=== PATIENT | female | born 1940 | race Caucasian/White ===

== ENCOUNTER 2019-04-14 13:50 | Emergency (ER) | payer MEDICARE, MEDICAID ==
[~2019-04-14] VITALS: Ht 157.5 cm; Wt 69.9 kg
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
--- NOTE | 2019-04-14 14:25 | NUR ---
[employer] at bedside for lab collection
[2019-04-14] MEDS ORDERED: IV NS 0.9% 500 ML BAG IV ONE (14:30)
[2019-04-14 14:44] LABS: BASOPHILS % (AUTO) 0.5 % (0.0-2.0); EOSINOPHILS % (AUTO) 1.5 % (0.0-6.0); HEMATOCRIT 39 % (33-45); HEMOGLOBIN 13.1 g/dL (11.5-14.8); LYMPHOCYTES # (AUTO) 0.9 /CMM (0.8-4.8); MEAN CORPUSCULAR HGB CONC 34 g/dl (31.0-36.0); MEAN CORPUSCULAR VOLUME 86 fL (82-100); MONOCYTES # (AUTO) 0.3 /CMM (0.1-1.30); MONOCYTES % (AUTO) 9.8 % (2.0-12.0); NEUTROPHILS # (AUTO) 2.2 /CMM (1.8-8.9); NEUTROPHILS % (AUTO) 61.2 % (43.0-81.0); PLATELET COUNT (AUTO) 135 /CMM (150-450); RED BLOOD CELL COUNT(AUTO) 4.58 MIL/uL (4.0-5.2); WHITE BLOOD COUNT (AUTO) 3.5 K/uL (4.3-11.0)
[2019-04-14 14:53] LABS: CALCIUM, SERUM 8.9 mg/dL (8.5-10.1); CREATININE 0.8 mg/dL (0.6-1.3)
--- NOTE | 2019-04-14 14:54 | NUR ---
xray at bedside
[2019-04-14 14:59] LABS: ALBUMIN 3.6 g/dL (3.4-5.0); BILIRUBIN,DIRECT 0.1 mg/dL (0.0-0.2); BILIRUBIN,TOTAL 0.6 mg/dL (0.2-1.0); TOTAL PROTEIN, SERUM 6.6 g/dL (6.4-8.2)
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
--- NOTE | 2019-04-14 15:18 | NUR ---
PT TAKEN TO CT
--- NOTE | 2019-04-14 15:19 | NUR ---
PT MAYKEL TO CT
--- NOTE | 2019-04-14 15:28 | NUR ---
PT CHRISTIE BACK FROM CT
--- NOTE | 2019-04-14 15:32 | NUR ---
Patient is resting comfortably in bed. Easily aroused. VSS. Family at bedside
--- NOTE | 2019-04-14 16:09 | NUR ---
EMT WALKED THE PATIENT. PT WALKED WITH STEADY GAIT.
--- NOTE | 2019-04-14 16:18 | NUR ---
Patient discharged to home in stable condition. Written and verbal after care instructions given. Patient verbalizes understanding of instruction and RX. IV removed. Catheter intact and site benign. Pressure and 4x4 applied to site. No bleeding noted.VSS. pt ambulatory with a steady gait.
[2019-04-14 16:20] VITALS: BP 148/82
== END 2019-04-14 16:23 | disposition home or self-care (01) ==
LOC: ER 13:54
DX: S22.32XA Fracture of one rib, left side, initial encounter for closed fracture (principal); S00.81XA Abrasion of other part of head, initial encounter; S60.511A Abrasion of right hand, initial encounter; S80.212A Abrasion, left knee, initial encounter; I10 Essential (primary) hypertension; E07.9 Disorder of thyroid, unspecified; Z86.19 Personal history of other infectious and parasitic diseases; W10.8XXA Fall (on) (from) other stairs and steps, initial encounter; Y93.89 Activity, other specified; Y92.89 Other specified places as the place of occurrence of the external cause; Y99.8 Other external cause status
CPT/HCPCS: 36415; 70450; 71100; 72125; 73502; 80048; 80076; 85025; 85730; 86850; 99284; A6403; J7040